=== PATIENT | male | born 1965 | race Caucasian/White ===

== ENCOUNTER → 2019-02-06 | Day surgery (SDC) | payer BC ==
--- NOTE | 2019-02-05 22:23 | Discharge Instructions ---
Discharge Instructions Discharge Instructions Follow up with: next week at Dr. Johnston's office Diet: regular Resume Normal Activity?: No Activity: light activity Pneumonia Vaccine: pt refused vaccine Influenza Vaccine (Mar to Aug): pt refused vaccine Return to Work/School on: Feb 19, 2019 Special Instructions ice to face x 48 hours For Surgical Patients Dressing Care: may change For Congestive Heart Failure Reminder Report to your physician any weight gain of 5 pounds or more in one week. Colton Johnston MD Feb 05, 2019 22:23
--- NOTE | 2019-02-05 22:28 | Pre-Procedure Note/Attestation ---
Pre-Procedure Note/Attestation Complete Prior to Procedure Planned Procedure: bilateral Procedure Narrative: 1. Septoplasty 2. Submucous resection right inferior turbinate 3. Submucous resection left inferior turbinate Indications for Procedure Pre-Operative Diagnosis: 1. Nasal septal deviation 2. Hypertrophied right inferior turbinate 3. Hypertrophied left inferior turbinate Attestation I attest that I discussed the nature of the procedure; its benefits; risks and complications; and alternatives (and the risks and benefits of such alternatives ), prior to the procedure, with the patient (or the patient's legal commercial pest control representative). I attest that, if there was a reasonable possibility of needing a blood transfusion, the patient (or the patient's legal commercial pest control representative) was given the [place] [employer] [facility] [employer] [facility] standardized written summary, pursuant to the Jorge Ranjeet Blood Safety Act ([place] Health and Safety Code # 1645, as amended). I attest that I re-evaluated the patient just prior to the surgery and that there has been no change in the patient's H&P done by Dr. Valle and reviewed by me. It was sent to [facility] pre op last week. Colton Johnston MD Feb 05, 2019 22:28
--- NOTE | 2019-02-05 22:30 | Brief Operative Note ---
Immediate Post Operative Note Operative Note Pre-op Diagnosis: 1. Nasal septal deviation 2. Hypertrophied right inferior turbinate 3. Hypertrophied left inferior turbinate Procedure: 1. Septoplasty 2. Submucous resection right inferior turbinate 3. Submucous resection left inferior turbinate Post-op Diagnosis: same as pre-op Findings: consistent w/pre-op dx studies Surgeon: Bj Johnston MD Costume Shop Coordinator: none Additional Surgeons: none Anesthesiologist: Dr. Misael INTERIANO Anesthesia: general Specimen: none Complications: none Condition: stable Fluids: D5LR Estimated Blood Loss: volume - 15 cc Drains: none Packing: Sino nasal gel Implant(s) used?: No Colton Johnston MD Feb 05, 2019 22:30
[2019-02-06] VITALS (9 sets, daily range): BP systolic 105–141; BP diastolic 61–85
[~2019-02-06] VITALS: Ht 175.3 cm; Wt 72.6 kg
[~2019-02-06] MED LIST: Acetaminophen (Non formulary) 100 ML IV ONE; Atropine Sulfate 0.4mg/ml inj IVP PRN; Bupivacaine w/Epi 0.5% 30ml Vial INJ ONE; Cocaine HCl 4% 4ml vial TOPIC ONE; Dexamethasone 4mg/ml vial IVP ONE; Dexamethasone 4mg/ml vial ONE; DiphenhydrAMINE 50mg/ml Inj IVP PRN; HYDROcodone/Acetamin 5/325 tab ORAL PRN; HYDROcodone/Acetamin 7.5/325 tab ORAL PRN; HYDROmorphone 1mg/ml Carpuject SUBQ PRN; Hydromorphone 0.5mg/0.5ml inj IVP PRN; Ketorolac 30mg Inj IV PRN; LORazepam Inj 2mg/ml 1ml IV PRN; LR 1000ml 1,000 ML IVLG SCH; LR 1000ml ONE; Labetalol 5mg/ml 20ml vial IV PRN; Lidocaine 1% 10mg/ml/Epi 0.005mg/ml 30ml vial INJ ONE; Lidocaine 1% MPF 10mg/ml 5ml ONE; Meperidine 50mg/ml Inj(FOR RIGORS ONLY) IVP PRN; Metoclopramide 10mg/2ml Inj IVP PRN; Midazolam 2mg/2ml Inj IVP PRN; Midazolam 2mg/2ml Inj ONE; NKM; NS Irrig 1000ml ONE; Sodium Chloride 10ml vial INJ ONE; Sterile Water Irrig 1000ml IRRIG ONE; ceFAZolin sod 1 GM in D5W 55 ML IV ONE; fentaNYL 100 mcg/2 mL IV ONE; fentaNYL 100 mcg/2 mL IV PRN; oxyCODONE HCL/Acetaminophen 5/325mg ORAL PRN
--- NOTE | 2019-02-06 07:06 | Anethesia Preoperative Eval ---
Anesthesia Pre-op PMH/ROS General Date of Evaluation: Feb 06, 2019 Time of Evaluation: 08:44 Anesthesiologist: Radha ASA Score: ASA 2 Mallampati Score Class I : Soft palate, uvula, fauces, pillars visible Class II: Soft palate, uvula, fauces visible Class III: Soft palate, base of uvula visible Class IV: Only hard plate visible Mallampati Classification: Class II Surgeon: Preston Diagnosis: Nasal Deviation Surgical Procedure: Septoplasty, SMR Turbinates Anesthesia History: none Family History: no anesthesia problems Allergies: Coded Allergies: No Known Allergies (Unverified , 02/06/19) Medications: see eMAR Patient NPO?: Yes Past Medical History Cardiovascular: Reports: HTN PSxH Narrative: Orchiectomy, Cholecystectomy Anesthesia Pre-op Phys. Exam Physician Exam Last Vital Signs Date Time Temp Pulse Resp B/P (MAP) Pulse Ox O2 Delivery O2 Flow Rate FiO2 02/06/19 06:47 Room Air 02/06/19 06:46 97.2 72 18 141/85 99 Constitutional: NAD Neurologic: CN 2-12 intact Cardiovascular: RRR Respiratory: CTA Gastrointestinal: S/NT/ND Airway Exam Mallampati Score: Class II MO: full Teeth: missing, intact Anesthesia Pre-op A/P Risk Assessment & Plan Assessment: ASA 2 Plan: GA Status Change Before Surgery: No Pre-Antibiotics Dru Gram Ancef IV Given Within 1 Hr of Incision: Yes Time Given: 08:46 Manny Garcia MD Feb 06, 2019 07:06
--- NOTE | 2019-02-06 07:08 | Immediate Post-Op Evaluation ---
Immediate Post-Op Evalulation Immediate Post-Op Evalulation Procedure: Septoplasty, SMR Turbinates Date of Evaluation: Feb 06, 2019 Time of Evaluation: 09:35 IV Fluids: 1000 LR Blood Products: 0 Estimated Blood Loss: 50 Urinary Output: 0 Blood Pressure Systolic: 139 Blood Pressure Diastolic: 77 Pulse Rate: 63 Respiratory Rate: 16 O2 Sat by Pulse Oximetry: 100 Temperature (Fahrenheit): 98.1 Pain Score (1-10): 2 Nausea: No Vomiting: No Complications 0 Patient Status: awake, reacts, patent, extubated, none Hydration Status: adequate Dru Gram Ancef IV Given Within 1 Hr of Incision: Yes Time Given: 08:46 Manny Garcia MD Feb 06, 2019 07:08
--- NOTE | 2019-02-06 07:09 | 48 Hour Post Anesthesia Eval ---
Post Anesthesia Evaluation Procedure: Septoplasty, SMR Turbinates Date of Evaluation: Feb 06, 2019 Time of Evaluation: 11:46 Blood Pressure Systolic: 141 0: 76 Pulse Rate: 67 Respiratory Rate: 18 Temperature (Fahrenheit): 98.4 O2 Sat by Pulse Oximetry: 100 Airway: patent Nausea: No Vomiting: No Pain Intensity: 2 Hydration Status: adequate Cardiopulmonary Status: Stable Mental Status/LOC: patient returned to baseline Follow-up Care/Observations: 0 Post-Anesthesia Complications: 0 Follow-up care needed: ready to discharge Manny Garcia MD Feb 06, 2019 07:09
--- NOTE | 2019-02-06 10:15 | Operative Note - Dictated ---
DATE OF OPERATION: 02/06/2019 SURGEON: Colton Johnston M.D. ANESTHESIOLOGIST: Manny Garcia M.D. GLOBAL REGULATORY LEAD: None. ANESTHESIA: Oral LMA general anesthesia as well as 10 mL 50:50 mixture 1% lidocaine, 1000 epinephrine, Marcaine 0.5% with 1:200,000 epinephrine as well as 4 mL of 4% topical cocaine placed on 4 nasal pledgets accounted for at the end of the case. PREOPERATIVE DIAGNOSES: Nasal septal deviation to the right, hypertrophied right and left inferior turbinates. POSTOPERATIVE DIAGNOSES: Nasal septal deviation to the right, hypertrophied right and left inferior turbinates. FINDINGS: Nasal septal deviation to the right, hypertrophied right and left inferior turbinates. PROCEDURE: 1. Septoplasty. 2. Submucous resection right inferior turbinate. 3. Submucous resection left inferior turbinate. TECHNIQUE: The patient prepped and draped in usual manner via LMA general anesthesia. A time-out was performed. All agreed as to the procedures to be done. He then was injected with the aforementioned lidocaine, Marcaine, epinephrine mixture and the 4 nasal pledgets, 2 on either nostril with the 4% topical cocaine were placed. I turned my attention to the left inferior turbinate first. Made a small incision with a 15 blade. Passed with a radiofrequency needle at a setting of 6, 10 seconds after coating with saline x2 and then outfractured with a Boies elevator. I then turned my attention to the right inferior turbinate. A small incision made with a 15 blade in the anterior inferior aspect. I then proceeded to place the radiofrequency needle at setting of 6, 10 seconds after coating with saline gel two passes. I then outfractured with a Boies elevator. I then made a [place] incision with a 15 blade via the right nostril. I then was able to elevate with a dental elevator the periosteum, perichondrium off the vomer and the quadrangular cartilage. I then made an incision superior and inferiorly of the quadrangular cartilage with a small angled scissors and removed this with a straight Fabby. I then used a gouge osteotome to remove the vomer on the right-hand side. It was sticking over to the left obstructing the lower third of the airway. This was then removed with a Yenny. Next was a 4-0 plain suture to close the flap on the right side of the septum. Please note, there was no violation of the mucous membrane on the left side of the septum. Nose and nasopharynx was suctioned clean. [place]am[place] nasal gel was placed. A mustache dressing was placed. The patient was extubated, alert, awake, and stable in the operating room prior to transfer to the recovery room. ESTIMATED BLOOD LOSS: 15 mL. COMPLICATIONS: None. DRAINS: None. Colton Johnston M.D. DR: MARGARITA JOB#: [id number] CC:
== END | disposition home or self-care (01) ==
LOC: SUR 06:19
DX: J34.2 Deviated nasal septum (principal); J34.3 Hypertrophy of nasal turbinates; I10 Essential (primary) hypertension; Z90.49 Acquired absence of other specified parts of digestive tract
CPT/HCPCS: 30140; 30520; J0690; J1100; J2250; J2405; J3010; 94003; 94150